=== PATIENT | male | born 1995 | race Caucasian/White ===

== ENCOUNTER 2017-04-12 09:02 | Emergency (ER) | payer OTHER ==
[~2017-04-12] VITALS: Ht 182.9 cm; Wt 90.9 kg
[2017-04-12] MEDS ORDERED: ADACEL/BOOSTRIX VACCINE (DIPHTH/PERTUSS/ACELL/TETANUS)0.5ML SYR (90715) IM ONE (09:15)
[2017-04-12] MEDS ORDERED: DERMABOND TOPICAL SKIN ADHESIVE TOP ONE (09:45)
[2017-04-12] MEDS ORDERED: KETOROLAC 60 MG/2 ML VIAL (J1885) IM ONE (09:45)
--- NOTE | 2017-04-12 09:56 | ED PDOC ---
Post-Departure Follow-Up PT STATES HE WAS AT WORK, USING A BLADE AND IT WAS LAID ON THE FLOOR. STATES HE REACHED FOR SOMETHING WITH THE LEFT ARM AND STRUCK HIS LEFT WRIST ON THIS BLADE , CAUSING A LACERATION TO THE LEFT WRIST. PT STATES HE TOLD [employer] THAT HE FELT DIZZY AND THEY SUGGESTED HE GO OUTSIDE TO GET SOME FRESH AIR. PT WAS OUTSIDE AND HAD A SYNCOPAL EPISODE. EPISODE WAS WITNESSED BY SOMEONE AND LASTED LESS THAN 1 MINUTE. PT OBTAINED ABRASIONS TO FACE/FOREHEAD FROM SYNCOPAL EPISODE. PT CURRENTLY COMPLAINS OF PAIN IN FOREHEAD, FACE AND LEFT WRIST. DENIES ANY NAUSEA, VOMITING, VISION CHANGES OR GLOBAL HEADACHE. PT STATES UNKNOWN LAST TETANUS VACCINE. BERENICE LOYOLA PA-C Apr 12, 2017 09:56
--- NOTE | 2017-04-12 10:29 | REP ---
CT Head without contrast HISTORY: Syncope COMPARISON: None There is no intraparenchymal hemorrhage, acute infarct, mass or midline shift. The ventricular system is normal in appearance. There is no extra cerebral collection. There is no fracture. The visualized sinuses are clear. Soft tissue swelling is present over the upper bones. IMPRESSION: There is no intracranial lesion. Signed by Ashok Jorge MD 04/12/2017 10:21 A
--- NOTE | 2017-04-12 10:50 | REP ---
CT ORBITS WITHOUT CONTRAST: HISTORY: Syncope. The globes, optic nerves and rectus muscles are normal in appearance. There is no orbital lesion. Mucosal thickening is present in the ethmoid, maxillary and left frontal sinuses. The remaining sinuses are clear. The osteomeatal units are patent. There is no fracture. Soft tissue swelling is present over the right zygoma. IMPRESSION: 1. There is no orbital lesion. 2. Sinus mucosal thickening as described above. Signed by Ashok Jorge MD 04/12/2017 10:52 A
[2017-04-12] MEDS ORDERED: KEFL500C17 PO (11:03)
[2017-04-12 11:08] VITALS: BP 132/78
== END 2017-04-12 11:09 | disposition home or self-care (01) ==
LOC: M ED 09:02 → EDBD 09:02 → M ED 11:09
DX: S61.512A Laceration without foreign body of left wrist, initial encounter (principal); S00.81XA Abrasion of other part of head, initial encounter; R55 Syncope and collapse; F17.210 Nicotine dependence, cigarettes, uncomplicated; W01.198A Fall on same level from slipping, tripping and stumbling with subsequent striking against other object, initial encounter; Y92.89 Other specified places as the place of occurrence of the external cause; Y93.89 Activity, other specified; Y99.0 Civilian activity done for income or pay
CPT/HCPCS: 12001; 70450; 70480; 90471; 90715; 96372; 99283; J1885